=== PATIENT | male | born 1985 | race Two or more races ===

== ENCOUNTER 2025-06-21 14:28 | Emergency (ER) | payer OTHER ==
[~2025-06-21] VITALS: Ht 172.7 cm; Wt 65.8 kg
[2025-06-21] MEDS ORDERED: ACETAMINOPHEN 500 MG GEL..CAP PO ONE ×2 (16:00→16:32)
[2025-06-21] MEDS ORDERED: METHYLPREDNISOLONE SOD SUCC 125 MG VIAL IV ONE (16:00)
[2025-06-21] MEDS ORDERED: GUAIFEN/DEXTROMETHORPHAN/PE 10 ML BLIST.PACK PO ONE (16:00)
[2025-06-21] MEDS ORDERED: METHYLPREDNISOLONE SOD SUCC 125 MG VIAL ONE (16:32)
[2025-06-21] MEDS ORDERED: GUAIFENESIN/DEXTROMETHORPHAN 100MG/10ML BLIST.PACK PO ONE (16:32)
[2025-06-21 16:59] LABS: BASO % 0.2 % (0.1-1.2); EOS # 0.11 (0.04-0.54); EOS % 1.1 % (0.7-7.0); LYMPH # 1.61 (1.18-3.74); LYMPH % 16.5 % (19.3-53.1); MEAN PLATELET VOLUME 10.90 fl (9.4-12.4); MONO # 0.64 (0.24-0.82); MONO % 6.6 % (4.7-12.5); NEUT # 7.36 (1.56-6.13); NEUT % 75.4 % (34.0-71.1); RED CELL DISTRIBUTION WIDTH 12.1 % (11.6-14.4)
[2025-06-21 17:29] LABS: ALT/SGPT 18.0 U/L (12-78); AST/SGOT 19.0 U/L (15-37); BILIRUBIN TOTAL 0.63 mg/dL (0.3-1.2); BUN CREA RATIO 11.0 (7.0-25.0); CREATININE SERUM 0.97 mg/dL (0.70-1.30); GFR 84.87; GLOBULINA 3.8 G/DL (2.4-3.5); GLUCOSE FASTING 99.0 mg/dL (65-100); OSMOLALITY SERUM 284.0 MOSM/KG (275-295)
[2025-06-21 17:35] LABS: COVID-19 AG NEGATIVE (NEGATIVE)
[2025-06-21] MEDS ORDERED: PEPCID AC20 MG PO (18:24)
[2025-06-21] MEDS ORDERED: SINGULAIR10 MG PO (18:24)
[2025-06-21] MEDS ORDERED: FLONASE16 GM NASAL (18:24)
[2025-06-21] MEDS ORDERED: AMOX1TAB5 PO (18:24)
== END 2025-06-21 19:46 | disposition home or self-care (01) ==
LOC: ER 14:29
PROVIDERS: General Practice
DX: J01.40 Acute pansinusitis, unspecified (principal); R51.9 Headache, unspecified; J06.9 Acute upper respiratory infection, unspecified